=== PATIENT | male | born 1995 | race Caucasian/White ===

== ENCOUNTER 2020-07-18 03:25 | Emergency (ER) | payer SELFPAY ==
[2020-07-18] MEDS ORDERED: PERCOCET 5/325M1 TAB PO (03:54)
[2020-07-18] MEDS ORDERED: AMOXICILLIN500 MG PO (03:54)
[2020-07-18 04:04] VITALS: BP 142/91
== END 2020-07-18 04:04 | disposition home or self-care (01) | DRG 159 ==
LOC: ED 03:25
DX: K02.9 Dental caries, unspecified (principal)

== ENCOUNTER 2020-09-26 09:58 | Emergency (ER) | payer SELFPAY ==
[~2020-09-26] VITALS: Ht 190.5 cm; Wt 90.9 kg
[~2020-09-26 09:58] MED LIST: AMOXICILLIN500 MG PO; PERCOCET 5/325M1 TAB PO
[2020-09-26 10:05] VITALS: BP 136/88
[2020-09-26] MEDS ORDERED: HYDROCO/APAP1 TA9 PO (10:21)
[2020-09-26] MEDS ORDERED: KEFLEX500 MG PO (10:21)
== END 2020-09-26 10:37 | disposition home or self-care (01) | DRG 158 ==
LOC: ED 09:58
DX: K02.9 Dental caries, unspecified (principal); M84.68XA Pathological fracture in other disease, other site, initial encounter for fracture; F17.210 Nicotine dependence, cigarettes, uncomplicated

== ENCOUNTER 2020-10-21 19:58 | Emergency (ER) | payer SELFPAY ==
[~2020-10-21 19:58] MED LIST changes: +HYDROCO/APAP1 TA9 PO; +KEFLEX500 MG PO
[2020-10-21] MEDS ORDERED: AMOXICILLIN500 M2 PO (22:05)
[2020-10-21] MEDS ORDERED: PERCOCET 5/321 COMBO PO (22:05)
[2020-10-21 22:19] VITALS: BP 120/70
== END 2020-10-21 22:19 | disposition home or self-care (01) | DRG 158 ==
LOC: ED 19:58
DX: K02.9 Dental caries, unspecified (principal); M84.68XA Pathological fracture in other disease, other site, initial encounter for fracture; F17.200 Nicotine dependence, unspecified, uncomplicated

== ENCOUNTER 2020-12-09 22:03 | Emergency (ER) | payer SELFPAY ==
[~2020-12-09 22:03] MED LIST changes: +AMOXICILLIN500 M2 PO; +PERCOCET 5/321 COMBO PO
== END 2020-12-09 22:17 | disposition left against medical advice (07) | DRG 951 ==
LOC: ED 22:03 → LWOBS 22:16
DX: Z53.21 Procedure and treatment not carried out due to patient leaving prior to being seen by health care provider (principal)

== ENCOUNTER 2020-12-11 01:29 | Emergency (ER) | payer SELFPAY ==
[~2020-12-11] VITALS: Ht 190.5 cm; Wt 91.0 kg
[2020-12-11] MEDS ORDERED: NAPROXEN500 MG PO (02:21)
[2020-12-11] MEDS ORDERED: AMOXICILLIN500 M2 PO (02:21)
[2020-12-11 02:45] VITALS: BP 134/99
== END 2020-12-11 02:51 | disposition home or self-care (01) | DRG 159 ==
LOC: ED 01:29
DX: K02.9 Dental caries, unspecified (principal); F17.200 Nicotine dependence, unspecified, uncomplicated

== ENCOUNTER 2020-12-18 21:51 | Emergency (ER) | payer SELFPAY ==
[~2020-12-18] VITALS: Ht 190.5 cm; Wt 90.0 kg
[~2020-12-18 21:51] MED LIST changes: +NAPROXEN500 MG PO
[2020-12-18 21:55] VITALS: BP 137/76
[2020-12-18] MEDS ORDERED: AMOXICILLIN500 MG PO (22:11)
[2020-12-18] MEDS ORDERED: ULTRAM50 M1 PO (22:11)
[2020-12-18] MEDS ORDERED: CLEOCIN300 MG PO (22:18)
== END 2020-12-18 22:22 | disposition home or self-care (01) | DRG 159 ==
LOC: ED 21:51
DX: K04.7 Periapical abscess without sinus (principal)